=== PATIENT | female | born 1980 | race Caucasian/White ===

== ENCOUNTER 2017-03-04 11:38 | Outpatient (CLI) | payer MEDICAID ==
[~2017-03-04] VITALS: Ht 157.5 cm; Wt 83.4 kg
[2017-03-04] MEDS ORDERED: PNV11TAB PO (11:49)
[2017-03-04 11:50] VITALS: BP 127/72; PULSE 74; RESP 18; Ht 157.5 cm; Wt 83.4 kg
--- NOTE | 2017-03-04 12:44 | RADRPT ---
PROCEDURE: US OB. CLINICAL INDICATION: Size and dates TECHNIQUE: Multiple sonographic images of the pelvis and gravid uterus were obtained. The images were reviewed on a PACS workstation. COMPARISON: No prior studies are available for comparison. FINDINGS: There is a single viable intrauterine gestation. Cardiac activity is present with 130 beats per min rambo. There is a vertex presentation. The placenta is posterior. There is no evidence for an abruption or placenta previa. Measurements were made in order to determine age. The results are as follows: BPD =9.1 cm HC =33.9 cm AC =36.8 cm FL =7.5 cm Estimated gestational age of approximately 38 weeks and 5 days based on ultrasound measurements. Clinical age: 38 weeks and 0 days. The estimated date of delivery is 03/13/17, based on ultrasound measurements. The EFW = 3800 g, 91%, based on LMP age. RPTAT: AA IMPRESSION: Single viable intrauterine gestation of approximately 38 weeks and 5 days based on ultrasound measu rements. .Vito Garcia MD, Date Time Electronically viewed and signed by .Vito Garcia MD, on 03/04/2017 12:44 .S/
--- NOTE | 2017-03-04 12:45 | RADRPT ---
PROCEDURE: US OB biophysical profile. CLINICAL INDICATION: decreased movements TECHNIQUE: Multiple sonographic images of the pelvis were obtained. The images were reviewed on a PACS workstation. COMPARISON: No prior studies are available for comparison. FINDINGS: There is a single viable intrauterine gestation. Cardiac activity is present with 114 beats per min rambo. There is a vertex presentation. The placenta is posterior. There is no evidence of placental abruption. There is a normal amount of amniotic fluid with an HUGH = 13.5 cm. Biophysical profile: movement 2/2 tone 2/2. breathing 2/2 HUGH 2/2 Total 11/06 RPTAT: AA . IMPRESSION: Normal biophysical profile. . .Vito Garcia MD, MD Date Time Electronically viewed and signed by .Vito Garcia MD, MD on 03/04/2017 12:45 .S/
--- NOTE | 2017-03-04 15:37 | TRIAGE ---
OB Triage Datetime Report Generated by CPN: 03/04/2017 15:37 Datetime: 03/04/2017 15:14 Labor Evaluation Frequency: 4-6 Monitor Mode: External Duration (sec)2399: 60-100 Quality: Mild Pattern: Normal: <= 5 Contractions in 10 Minutes Resting Tone [place]: Relaxed Heart Rate FHR Baseline Rate: 130 Monitor Mode: External US FHR Baseline Changes: No Baseline Change Variability: Moderate 6-25 bpm Accelerations: 15X15 Decelerations: None Category: Category I Pain Presence: None/Denies Datetime: 03/04/2017 14:09 Labor Evaluation Frequency: 4-6 Monitor Mode: External Duration (sec)2399: 70-100 Quality: Mild Pattern: Normal: <= 5 Contractions in 10 Minutes Resting Tone [place]: Relaxed Heart Rate FHR Baseline Rate: 130 Monitor Mode: External US FHR Baseline Changes: No Baseline Change Variability: Moderate 6-25 bpm Accelerations: 15X15 Decelerations: None Category: Category I Pain Presence: None/Denies Datetime: 03/04/2017 13:38 Vaginal Exam Dilatation (cms): 0.5 Effacement (%): 40 Station: -4 Datetime: 03/04/2017 12:28 Labor Evaluation Frequency: 4-6 Monitor Mode: External Duration (sec)2399: 60-100 Quality: Mild Pattern: Normal: <= 5 Contractions in 10 Minutes Resting Tone [place]: Relaxed Heart Rate FHR Baseline Rate: 130 Monitor Mode: External US FHR Baseline Changes: No Baseline Change Variability: Moderate 6-25 bpm Accelerations: 15X15 Decelerations: None Category: Category I Pain Presence: None/Denies Datetime: 03/04/2017 11:56 Labor Evaluation Frequency: OCCAS Monitor Mode: External Duration (sec)2399: 120 Quality: Mild Pattern: Normal: <= 5 Contractions in 10 Minutes Resting Tone [place]: Relaxed Heart Rate FHR Baseline Rate: 135 Monitor Mode: External US Variability: Moderate 6-25 bpm Accelerations: 15X15 Decelerations: None Category: Category I Datetime: 03/04/2017 11:53 Stage of : OB Triage Assessment Type: Triage Maternal Assessment Level of Consciousness: Fully Conscious DTR's/Clonus: DTRs 2+; No Clonus Headache: Denies Blurred Vision: No Respiratory Effort: Unlabored; Regular Rhythm; Equal Expansion Breath Sounds, Left: Clear and Equal Breath Sounds, Right: Clear and Equal Nausea/Vomiting: Denies RUQ Epigastric Pain: Denies Lower Extremities Edema: None Degree: None Upper Extremities Edema: None Degree: None Facial Edema: None Temperature Route: Axillary Fall Risk Assessment History of Falling: (0) No Secondary Diagnosis: (0) No Ambulatory Aid: (0) Bedrest/Nurse Assist IV Therapy: (0) No Gait: (0) Normal/Bedrest/Immobile Mental Status: (0) Oriented to Own Ability Fall Score: 0 Fall Risk Score Definition: No Risk: No action required Pain Assessment Pain Scale: 0 Pain Presence: None/Denies Pain Type: N/A Pain Goal: 3 Datetime: 03/04/2017 11:51 Time of Arrival: 03/04/2017 11:51 EGA: 38.0 Arrived By: Ambulatory Arrived From: Office Chief Complaint: NST, HUGH, EFW Movement: Present Contractions: Irregular Rupture of Membranes: Denies Vaginal Bleeding: None Vaginal Discharge: Denies Recent Sexual Intercouse: Denies Abdominal Trauma: Not Applicable Patient Complaints: None Time Provider Notified: 03/04/2017 15:15 Provider Notified: KINGS Initial Plan: HUGH WILDE EFW Datetime: 03/04/2017 11:48 Time of Arrival: 03/04/2017 11:44 Arrived By: Ambulatory Arrived From: Office Chief Complaint: U/S r/o LGA came from clinic with orders Movement: Present Contractions: Denies/Absent Rupture of Membranes: Denies Vaginal Bleeding: None Vaginal Discharge: Denies Recent Sexual Intercouse: Yes Abdominal Trauma: Not Applicable Patient Complaints: None; Other Additional Patient Complaints: CHANI, HUGH, XIMENA
--- NOTE | 2017-03-04 17:33 | PN ---
Triage Information Date/Time Reason for visit: Patient referred to triage for NST HUGH and estimated weight Weeks of Gestation 38 week /Para Diabetes: none Hypertention: none Objective Vital Signs Date Time Temp Pulse Resp B/P Pulse Ox O2 Delivery O2 Flow Rate FiO2 03/04/17 11:50 97.9 74 18 127/72 Room Air Heart Rate: 130's Contractions: None Exam Deferred Disposition: Discharge Assessment/Plan 36 years old 38 weeks referred from [facility], [place], operated by [facility] for biophysical profile estimated weight, results BPP 11/06 estimated weight 3800 g a copy of the ultrasound report given to the patient recommended follow-up at [facility], [place], [facility] by [facility] within the next 48 hours JOLEEN KU MD Mar 04, 2017 17:33
== END 2017-03-04 15:45 | disposition home or self-care (01) ==
LOC: EDBD 11:38 → OBT 11:38 → L-D 11:38 → OBT 15:45
PROVIDERS: ATTEND Obstetrics & Gynecology
DX: O26.843 Uterine size-date discrepancy, third trimester (principal); Z3A.38 38 weeks gestation of pregnancy
CPT/HCPCS: 76815; 76818